=== PATIENT | male | born 1970 | race Caucasian/White ===

== ENCOUNTER 2017-05-01 12:20 | Emergency (ER) | payer BC ==
[2017-05-01 12:30] VITALS: BP 115/77
[2017-05-01] MEDS ORDERED: Albuterol/Ipratropium 3.0-0.5 MG/3 ML Neb Soln NEB ONE (13:12)
[2017-05-01] MEDS ORDERED: methylPREDNISolone Sodium Succinate 125 MG/2 ML SDV IM ONE (13:13)
--- NOTE | 2017-05-01 13:21 | EDM.PDOC ---
ED HPI GENERAL MEDICAL PROBLEM - General Chief Complaint: ENT Problem Stated Complaint: sore throat, cough Time Seen by Provider: 05/01/17 13:02 Source of Information: Reports: Patient History Limitations: Reports: No Limitations - History of Present Illness INITIAL COMMENTS - FREE TEXT/NARRATIVE: 3 day history upper airway congestion, sore throat, cough. 1 PPD smoker. Hx of COPD. Has Ventolin inhaler at home which has not been very helpful. More SOB than usual. No real fevers. Temp was in 99 degree range. No GI changes. Feels tired. Throat Pain Score (Numeric/FACES): 8 - Related Data Allergies Allergy/AdvReac Type Severity Reaction Status Date / Time No Known Allergies Allergy Verified 05/01/17 12:31 Home Meds: Home Meds Albuterol [Ventolin HFA] 1 puff INH BID 04/15/16 [History] predniSONE [Prednisone] 40 mg PO DAILY #8 tablet 05/01/17 [Rx] traMADol HCl [Tramadol HCl] 50 mg PO Q6H PRN #12 tablet 05/01/17 [Rx] Past Medical History HEENT History: Reports: Impaired Vision Cardiovascular History: Reports: Other (See Below) Other Cardiovascular History: cardiac arrest Respiratory History: Reports: Asthma, Other (See Below) Other Respiratory History: Legionnaires pneumonia with cardiac arrest Genitourinary History: Reports: None Musculoskeletal History: Reports: Other (See Below) Other Musculoskeletal History: skull fracture Neurological History: Reports: None Psychiatric History: Reports: ADD Other Psychiatric History: has been off adderal since Mar 2017 Endocrine/Metabolic History: Reports: Obesity/BMI 30+ Hematologic History: Reports: None Oncologic (Cancer) History: Reports: None - Past Surgical History GI Surgical History: Reports: Cholecystectomy Musculoskeletal Surgical History: Reports: Other (See Below) Other Musculoskeletal Surgeries/Procedures:: skull fracture Social & Family History - Family History Family Medical History: Noncontributory - Tobacco Use Smoking Status *Q: Current Every Day Smoker Years of Tobacco use: 20 Packs/Tins Daily: 1 - Caffeine Use Caffeine Use: Reports: Coffee - Alcohol Use Days Per Week of Alcohol Use: 0 Number of Drinks Per Day: 3 Total Drinks Per Week: 0 - Recreational Drug Use Recreational Drug Use: No ED ROS ENT - Review of Systems Review Of Systems: See Below Constitutional: Reports: Fatigue. Denies: Fever, Chills, Diaphoresis, Weight Loss, Weight Gain HEENT: Reports: Rhinitis, Throat Pain. Denies: Ear Pain, Eye Discharge, Eye Pain, Vertigo Respiratory: Reports: Shortness of Breath, Wheezing, Cough. Denies: Pleuritic Chest Pain, Hemoptysis Cardiovascular: Denies: Chest Pain, Edema, Lightheadedness, Palpitations, Syncope GI/Abdominal: Reports: No Symptoms : Reports: No Symptoms Musculoskeletal: Reports: No Symptoms Skin: Reports: No Symptoms Neurological: Reports: No Symptoms Psychiatric: Reports: No Symptoms Hematologic/Lymphatic: Reports: Swollen Glands (neck) ED EXAM, ENT - Physical Exam Exam: See Below Exam Limited By: No Limitations General Appearance: Alert, WD/WN, No Apparent Distress, Obese Eye Exam: Bilateral Eye: EOMI, PERRL Ears: Normal External Exam, Normal Canal, Hearing Grossly Normal, Normal TMs Nose: Normal Inspection Mouth/Throat: Normal Lips, Tonsillar Swelling. No: Drooling, Pharyngeal Erythema, Tongue Swelling, Tonsillar Erythema, Tonsillar Exudates, Uvular Deviation, Uvular Edema Head: Atraumatic, Normocephalic Neck: Supple, Full Range of Motion, Lymphadenopathy (L), Lymphadenopathy (R) Respiratory/Chest: No Respiratory Distress, Wheezing (throughout). No: Crackles , Rales, Rhonchi, Stridor, Pleural Rub, Accessory Muscle Use, Retractions Cardiovascular: Tachycardia GI/Abdominal: Soft, Non-Tender (Male) Exam: Deferred Rectal (Males) Exam: Deferred Back: No: CVA Tenderness (L), CVA Tenderness (R) Extremities: Normal Range of Motion, Non-Tender Neurological: Alert, Oriented, Normal Cognition, Normal Gait, No Motor/Sensory Deficits Psychiatric: Normal Affect, Normal Mood Skin: Warm, Dry, Intact, Normal Color Lymphatic: Other (mild neck adenopathy) Course - Vital Signs Last Recorded V/S: Last Vital Signs Temp 37.0 C 05/01/17 12:25 Pulse 116 H 05/01/17 12:25 Resp 19 05/01/17 12:25 BP 115/77 05/01/17 12:25 Pulse Ox 94 L 05/01/17 12:25 - Orders/Labs/Meds Orders: Active Orders 24 hr Category Date Time Status RT Aerosol Therapy [RC] ASDIRECTED Care 05/01/17 13:12 Active Chest 2V [CR] Stat Exams 05/01/17 13:11 Taken CULTURE STREP A CONFIRMATION [RM] Stat Lab 05/01/17 12:31 Results STREP SCRN A RAPID W CULT CONF [RM] Stat Lab 05/01/17 12:31 Results Meds: Medications Discontinued Medications Generic Name Dose Route Start Last Admin Trade Name Ronnieq PRN Reason Stop Dose Admin Albuterol/Ipratropium 3 ml 05/01/17 13:12 05/01/17 13:23 Duoneb 3.0-0.5 Mg/3 Ml NEB 05/01/17 13:13 3 ml ONETIME ONE Administration Methylprednisolone Sodium Succinate 125 mg 05/01/17 13:13 05/01/17 13:22 Solu-Medrol IM 05/01/17 13:14 125 mg ONETIME ONE Administration - Radiology Interpretation Free Text/Narrative:: Chest film showed changes consistent with COPD. Some scarring. No obvious focal infiltrated. Pending Radiology review. - Re-Assessments/Exams Free Text/Narrative Re-Assessment/Exam: 05/01/17 13:58 Patient declined IV fluids. Given Duo Neb to help with cough. O2 Sats 94% on room air prior to neb treatment. Suspect this is viral illness with COPD exacerbation given the prominence of the sore throat/nasal congestion complaints. No fevers. Will treat as COPD exacerbation at this time. If this does not follow a normal viral course, or if Radiology notes otherwise, will consider adding antibiotics as indicated. Smoking cessation stressed. Compliance with treatment of COPD emphasized. Follow up with a primary provider to establish local care also stressed, including consideration of starting additional COPD meds given his chronic smoking/lung changes. Precautions reviewed prior to discharge. Work slip given for today/tomorrow off. Departure - Departure Time of Disposition: 13:58 Disposition: Home, Self-Care 01 Condition: Good Clinical Impression: Viral respiratory illness, COPD exacerbation - Discharge Information Prescriptions: predniSONE [Prednisone] 40 mg PO DAILY #8 tablet traMADol HCl [Tramadol HCl] 50 mg PO Q6H PRN #12 tablet PRN Reason: Pain Instructions: Chronic Obstructive Pulmonary Disease, [id number] Referrals: PCP,Unknown [Ordering Only Provider] - Forms: ED Department Discharge Additional Instructions: Use your inhaler 1-2 puffs every 4-6 hours to help with cough. Start Prednisone tomorrow. You received the Solumedrol today. Follow up next week for recheck. Watch for fevers/generalized worsening as you have a higher risk of developing bacterial pneumonia. If that is suspected, then you will require antibiotics. Stopping smoking is HIGHLY encouraged given your history and lung disease. Discuss adding additional inhalers to your COPD treatment that help prevent flares (the one you have is to help AFTER symptoms have started) when you follow up at the clinic next week. Follow up otherwise as needed if you have problems. - My Orders Last 24 Hours: My Active Orders 05/01/17 12:31 CULTURE STREP A CONFIRMATION [RM] Stat STREP SCRN A RAPID W CULT CONF [RM] Stat 05/01/17 13:11 Chest 2V [CR] Stat 05/01/17 13:12 RT Aerosol Therapy [RC] ASDIRECTED - Assessment/Plan Last 24 Hours: My Active Orders 05/01/17 12:31 CULTURE STREP A CONFIRMATION [RM] Stat STREP SCRN A RAPID W CULT CONF [RM] Stat 05/01/17 13:11 Chest 2V [CR] Stat 05/01/17 13:12 RT Aerosol Therapy [RC] ASDIRECTED
== END 2017-05-01 14:15 | disposition home or self-care (01) ==
LOC: LL.ED 12:20
DX: J44.1 Chronic obstructive pulmonary disease with (acute) exacerbation (principal); J06.9 Acute upper respiratory infection, unspecified; J45.909 Unspecified asthma, uncomplicated; F17.210 Nicotine dependence, cigarettes, uncomplicated; Z79.52 Long term (current) use of systemic steroids
CPT/HCPCS: 71046; 87081; 87430; 96372; 99284; J2930

== ENCOUNTER 2017-06-07 02:23 | Emergency (ER) | payer BC, OTHER ==
[2017-06-07 02:37] VITALS: BP 126/81
--- NOTE | 2017-06-07 02:46 | EDM.PDOC ---
ED HPI GENERAL MEDICAL PROBLEM - General Chief Complaint: Upper Extremity Injury/Pain Stated Complaint: crush injury R) hand 2nd digit Time Seen by Provider: 06/07/17 02:40 Source of Information: Reports: Patient, Old Records ([facility] EMR. No paper hospital chart available.) History Limitations: Reports: No Limitations - History of Present Illness INITIAL COMMENTS - FREE TEXT/NARRATIVE: The patient drove himself to the emergency room via private automobile for evaluation of a Workmen's Compensation injury, which occurred at about 2 AM on . 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 He has had difficulty using his right hand today while performing his work duties at work. He complains of 8/10 mostly second finger pain at this time with decreased range of motion and no history of repeat injury or previous injury to his right hand in the past. He has not taken any medications for his discomfort to this point with an additional minor abrasion and redness noted on the same finger. No history of paresthesias, neurological deficits, or other complaints or injuries. The patient denies any chest pain/pressure, heart flutter, dizziness, orthostasis, orthopnea, diaphoresis, paresthesias, recent decreased exercise tolerance, or any other anginal-type symptoms. No recent history of abdominal pain, heartburn , nausea, diarrhea, melena, gross hematochezia, or any food intolerance, including fatty foods, etc.. The patient also denies any recent fever, cough, wheezing, dyspnea, etc.. Onset: Sudden Onset Date: 06/06/17 Onset Time: 02:00 Duration: Constant, Getting Worse Location: Reports: Upper Extremity, Right. 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 Denies: Cataract, Glaucoma, Hard of Hearing, Macular Degeneration, Retinal Detachment Other HEENT History: Glasses Cardiovascular History: Reports: Other (See Below). Denies: Afib, Aneurysm, Arrhythmia, Blood Clots/VTE/DVT, CAD, Heart Murmur, High Cholesterol, Hypertension, NC, Syncope Other Cardiovascular History: Intraoperative cardiac arrest recently during bronchoscopy in about 2007 with no additional procedures required Respiratory History: Reports: Asthma, Bronchitis, Recurrent, COPD, Intubation, Previous, Other (See Below). Denies: PE, Pneumothorax, Sleep Apnea, TB Other Respiratory History: Legionnaires pneumonia with cardiac arrest during bronchoscopy in 2007 as above Gastrointestinal History: Reports: Cholelithiasis. Denies: Celiac Disease, Chronic Constipation, Chronic Diarrhea, Fecal Incontinence, Gastritis, GERD, Hepatitis, Inflammatory Bowel Disease, Irritable Bowel Syndrome, Jaundice, Pancreatitis, PUD Genitourinary History: Reports: None. Denies: Acute Renal Failure, BPH, Chronic Renal Insuffiency, Renal Calculus, STD, Urinary Incontinence, UTI, Recurrent Musculoskeletal History: Reports: Arthritis, Fracture, Osteoarthritis, Other ( See Below). Denies: Amputation, Back Pain, Chronic, Gout, Neck Pain, Chronic, RA, SLE Other Musculoskeletal History: Right foot fracture at about age 14. Skull fracture at age 10 Neurological History: Reports: Concussion, Head Trauma, Other (See Below). Denies: Cerebral Aneurysms, CVA, Headaches, Chronic, Migraines, MS, Neuropathy, Peripheral, Parkinson's, Seizure, TIA Other Neuro History: Head concussion with skull fracture at age 10 Psychiatric History: Reports: ADD, ADHD, Addiction. Denies: Abuse, Victim of, Anxiety, Depression, Psych Hospitalization(s), PTSD, Suicide Attempt, Suicidal Ideation Other Psychiatric History: The patient has been off Adderal since Mar 2017. Previous history of illicit drug use as below. Endocrine/Metabolic History: Reports: Obesity/BMI 30+. Denies: Diabetes, Type I , Diabetes, Type II, Diabetes Mellitus, Type 3c, Hypothyroidism, IDDM Hematologic History: Reports: None. Denies: Anemia, Blood Transfusion(s), Iron Deficiency Immunologic History: Reports: None. Denies: AIDS, HIV, SLE Oncologic (Cancer) History: Reports: None. Denies: Basal Cell Carcinoma, Hodgkin's Lymphoma, Leukemia, Lymphoma, Malignant Melanoma, Non-Hodgkin's Lymphoma, Squamous Cell Carcinoma Dermatologic History: Reports: None. Denies: Eczema, Psoriasis - Infectious Disease History Infectious Disease History: Reports: Chicken Pox, Other (See Below). Denies: C- Difficile, Measles, Meningitis, Mononucleosis, MRSA, Mumps, Pertussis (Whooping Cough), Rheumatic Fever, Scarlet Fever, Shingles, VRE Other Infectious Disease History: Legionnaires disease in 2007 - Past Surgical History Head Surgeries/Procedures: Reports: Other (See Below) Other Head Surgeries/Procedures: Plastic surgery for skull fracture/injury at age 10 HEENT Surgical History: Reports: None. Denies: Adenoidectomy, Cataract Surgery , Eye Surgery, Laser Surgery, LASIK, Myringotomy w Tube(s), Naso-Sinus Surgery, Oral Surgery, Tonsillectomy Cardiovascular Surgical History: Denies: Varicose Respiratory Surgical History: Reports: Other (See Below). Denies: Thoracentesis Other Respiratory Surgeries/Procedures: Bronchoscopy in 2007 secondary to evaluation of hemoptysis from legionnaires disease with cardiac arrest as above GI Surgical History: Reports: Cholecystectomy, Other (See Below). Denies: Appendectomy, Colonoscopy, EGD, Hernia, Abdominal, Hernia, Inguinal, Hernia Repair/Other Other GI Surgeries/Procedures: Laparoscopic cholecystectomy in about 2012 Male Surgical History: Reports: Circumcision, Other (See Below). Denies: Vasectomy Other Male Surgeries/Procedures: Circumcision as an infant Endocrine Surgical History: Denies: Thyroid Biopsy Neurological Surgical History: Reports: None. Denies: C-Spine, Discectomy, Intracranial, Laminectomy, Lumbar Spine, Sacral Spine, Spinal Fusion, Vertebroplasty Musculoskeletal Surgical History: Reports: Other (See Below). Denies: Arthroscopic Procedure, Carpal Tunnel, Ganglion Cyst, Joint Replacement, ORIF, Shoulder Surgery Other Musculoskeletal Surgeries/Procedures:: skull fracture Oncologic Surgical History: Reports: None Dermatological Surgical History: Reports: Plastic Surgical Reconstruction/Repair , Other (See Below) Other Dermatological Surgeries/Procedures: Plastic surgery of skull injury at age 10 as above Social & Family History - Family History Family Medical History: Noncontributory - Tobacco Use Smoking Status *Q: Current Every Day Smoker Tobacco Use Within Last Twelve Months: Cigarettes Years of Tobacco use: 24 Packs/Tins Daily: 1 Packs/Tins Daily Comment: Start smoking at age 23 with maximum use of 3 packs per day Used Tobacco, but Quit: No Smoking Cessation Information Provided To Patient: Yes Second Hand Smoke Exposure: Yes Source of Second Hand Smoke Exposure: Roommate's father Second Hand Smoke Education Provided: Yes - Caffeine Use Caffeine Use: Reports: Coffee (3 cups per week), Soda (1 L per day). Denies: Energy Drinks, Tea - Alcohol Use Alcohol Use History: Yes Days Per Week of Alcohol Use: 0 (No previous DWIs, problems with alcohol abuse, etc.) Number of Drinks Per Day: 0 Total Drinks Per Week: 0 Alcohol Use Frequency: Rarely - Recreational Drug Use Recreational Drug Use: No Drug Use in Last 12 Months: No Recreational Drug Type: Reports: Cocaine (Between ages 20 and 24), Marijuana/ Hashish (Experimental in high school). Denies: Amphetamines (Speed), Heroin, Inhalants (Glues, Solvents, Aerosols), LSD (Acid), Methamphetamine, Morphine, Oxycodone - Living Situation & Occupation Living situation: Reports: Single (No children), Other (Roommate and roommate's father) Occupation: Employed ([email or web address]) Review of Systems - Review of Systems Review Of Systems: ROS reveals no pertinent complaints other than HPI. ED EXAM, GENERAL - Physical Exam Exam: See Below Exam Limited By: No Limitations General Appearance: Alert, WD/WN, No Apparent Distress Neck: Normal Inspection, Supple, Non-Tender, Full Range of Motion. No: Lymphadenopathy (L), Lymphadenopathy (R), Thyromegaly Respiratory/Chest: No Respiratory Distress, Normal Breath Sounds, No Accessory Muscle Use, Chest Non-Tender, Rhonchi (Mild bilateral diffuse), Wheezing ( Occasional bilateral diffuse). No: Rales, Pleural Rub, Retractions Cardiovascular: Normal Peripheral Pulses, Regular Rate, Rhythm, No Edema, No Gallop, No JVD, No Murmur, No Rub. No: Gallop/S3, Gallop/S4 Peripheral Pulses: 2+: Radial (L), Radial (R) GI/Abdominal: Normal Bowel Sounds, Soft, Non-Tender, No Organomegaly, No Distention, No Abnormal Bruit, No Mass, Pelvis Stable, Other (obese). No: Guarding (Male) Exam: Deferred Rectal (Males) Exam: Deferred Back Exam: Normal Inspection, Full Range of Motion, Other (Mild kyphosis). No: CVA Tenderness (L), CVA Tenderness (R), Muscle Spasm Extremities: No Pedal Edema, Normal Capillary Refill, Joint Swelling (Mostly at the MCP of digit #2 of the right hand), Arm Pain (Moderate pain by palpation and movement mostly at the MCP of digit #2 of the right hand), Limited Range of Motion (Digit #2 of the right hand), Redness (Mild +1 erythema of digit #2 of the right hand with small 1 cm superficial abrasion noted further dorsal surface of the distal phalanx). No: Increased Warmth Neurological: Alert, Oriented, CN II-XII Intact, Normal Cognition, Normal Gait, Normal Reflexes, No Motor/Sensory Deficits Psychiatric: Normal Affect, Normal Mood Skin Exam: No Rash, Erythema (As above), Wound/Incision (As above). No: Lymphangitis Lymphatic: No Adenopathy ED TRAUMA EXTREMITY PROCEDURES - Splinting Right Upper Extremity Splint Site: Digit number 2 of the right hand Pre-Procedure NV Status: Normal Post-Procedure NV Status: Normal Splint Material: Aluminum-Foam, Other (2 inch Paulo wrap) Splint Design: Other (1 inch in width flexor splint extending to the mid aspect of the palmar surface of the hand secured with a 2 inch Paulo wrap) Applied & Form Fitted By: Provider Provider Post-Splint Application NV Check: NV Status Normal, Good Position Complications: No Course - Vital Signs Last Recorded V/S: Last Vital Signs Temp 37.0 C 06/07/17 02:25 Pulse 98 06/07/17 02:25 Resp 20 06/07/17 02:25 BP 126/81 06/07/17 02:25 Pulse Ox 93 L 06/07/17 02:25 Vital Signs - 24 hr 06/07/17 02:25 Temperature [ 37.0 C Temporal] Pulse, 98 Peripheral [ Right Brachial] Respiratory 20 Rate Blood Pressure 126/81 [Right Upper Arm] O2 Sat by Pulse 93 L Oximetry - Orders/Labs/Meds Labs: Laboratory Tests 06/07/17 Range/Units 03:10 Urine Opiates Screen Negative (NEGATIVE) Ur Barbiturates Screen Negative (NEGATIVE) Ur Tricyclics Screen Negative (NEGATIVE) Ur Phencyclidine Scrn Negative (NEGATIVE) Ur Amphetamine Screen Negative (NEGATIVE) U Methamphetamines Scrn Negative (NEGATIVE) U Benzodiazepines Scrn Negative (NEGATIVE) U Cocaine Metab Screen Negative (NEGATIVE) U Marijuana (THC) Screen Negative (NEGATIVE) None Meds: Medications Discontinued Medications Generic Name Dose Route Start Last Admin Trade Name Freq PRN Reason Stop Dose Admin Amoxicillin/Clavulanate Potassium 1 tab 06/07/17 03:20 06/07/17 03:25 Augmentin 875 Mg/125 Mg PO 06/07/17 03:21 1 tab ONETIME ONE Administration - Radiology Interpretation Free Text/Narrative:: X-rays of the right hand, complete, shows evidence of a mildly displaced palmar moderate chip fracture of the proximal aspect of the proximal phalanx of digit # 2. No evidence of foreign body. Moderate diffuse osteoarthritic changes with probable artifact of the distal aspect of the middle phalanx of the same digit but no definite fracture in this area. Departure - Departure Time of Disposition: 03:50 Disposition: Home, Self-Care 01 Condition: Good Clinical Impression: Tobacco abuse counseling Finger fracture, right Qualifiers: Encounter type: initial encounter Finger: index finger Fracture type: closed Phalanx: proximal Fracture alignment: displaced Qualified Code(s): S62.610A - Displaced fracture of proximal phalanx of right index finger, initial encounter for closed fracture Cellulitis Qualifiers: Site of cellulitis: extremity Site of cellulitis of extremity: finger Laterality: right Qualified Code(s): L03.011 - Cellulitis of right finger Asthma Qualifiers: Asthma severity: moderate Asthma persistence: persistent Asthma complication type: uncomplicated Qualified Code(s): J45.40 - Moderate persistent asthma, uncomplicated Osteoarthritis Qualifiers: Osteoarthritis location: multiple joints Osteoarthritis type: primary Qualified Code(s): M15.0 - Primary generalized (osteo)arthritis ADHD Qualifiers: Attention deficit-hyperactivity disorder type: predominantly inattentive Qualified Code(s): F90.0 - Attention-deficit hyperactivity disorder, predominantly inattentive type - Discharge Information Prescriptions: Amoxicillin/Clavulanate K [Augmentin 875-125 MG] 1 tab PO BIDMEALS #20 tab Instructions: Finger Fracture, [id number], Cellulitis, Adult, [id number] Referrals: PCP,Unknown [Primary Care Provider] - Forms: ED Department Discharge Additional Instructions: 1. Follow-up with your regular provider in one week for reevaluation and repeat x-rays of your right hand. 2. Tylenol 650 mg by mouth every 4 hours and/or OTC ibuprofen 2-3 tabs by mouth every 6 hours with food as directed./needed. 3. Antibacterial soap wash/soak with subsequent antibacterial dressing such as Neosporin, etc. as directed 2 times per day until the wound or laceration site completely heals. Keep the area clean and dry with activity restrictions as discussed. 4. Wear finger splint at all times as directed with exception of bathing and wound care with limited use of your right hand as discussed 5. Work excuse- See Form 6. Ice packs and and elevation as discussed 7. Stop all tobacco use ZAHIDA as directed/per provided information and consider contacting Quit LIne, etc.. - Problem List & Annotations (1) Finger fracture, right SNOMED Code(s): 53430169 Code(s): S62.609A - FRACTURE OF UNSP PHALANX OF UNSP FINGER, INIT FOR CLOS FX Status: Acute Priority: High Onset Date: 06/07/17 Annotation/Comment: : Finger fracture as above. Splint applied as above. Workmen's Compensation and [employer] work excuse forms were completed. Close follow-up by his regular provider as per discharge instructions. Various therapeutic options were discussed with patient, including possible referral to hand surgeon, which he does not wish to have this time. Activity restrictions and wound care, etc. were discussed. He did not wish to have IM Toradol and was somewhat aggravated concerning ER policy of restricting narcotic prescriptions. Compliance with alternating Tylenol and ibuprofen therapy was encouraged. Note distant history of illicit drug use as above with urine specimen for drug screen collected with results completed later this morning after the patient left the emergency room. Qualifiers: Encounter type: initial encounter Finger: index finger Fracture type: closed Phalanx: proximal Fracture alignment: displaced Qualified Code(s): S62.610A - Displaced fracture of proximal phalanx of right index finger, initial encounter for closed fracture (2) Cellulitis SNOMED Code(s): 215256010 Code(s): L03.90 - CELLULITIS, UNSPECIFIED Status: Acute Priority: High Onset Date: 06/06/17 Annotation/Comment:: Mild abrasion of his second finger on his right hand as above with secondary beginning possible cellulitis. No acute drainage noted. His tetanus booster is up-to-date by his history. Augmentin therapy initiated in the emergency room. Qualifiers: Site of cellulitis: extremity Site of cellulitis of extremity: finger Laterality: right Qualified Code(s): L03.011 - Cellulitis of right finger (3) ADHD SNOMED Code(s): 000099375 Code(s): F90.9 - ATTENTION-DEFICIT HYPERACTIVITY DISORDER, UNSPECIFIED TYPE Status: Chronic Priority: Medium Annotation/Comment:: Stable by history with the patient noncompliant with his Adderall therapy as above stopping his medication on his own. Note history of illicit drug use in the past as above. Qualifiers: Attention deficit-hyperactivity disorder type: predominantly inattentive Qualified Code(s): F90.0 - Attention-deficit hyperactivity disorder, predominantly inattentive type (4) Asthma SNOMED Code(s): 864742761 Code(s): J45.909 - UNSPECIFIED ASTHMA, UNCOMPLICATED Status: Chronic Priority: Medium Annotation/Comment:: Additional probable COPD by clinical exam and secondary to his tobacco use, however otherwise stable by patient history Qualifiers: Asthma severity: moderate Asthma persistence: persistent Asthma complication type: uncomplicated Qualified Code(s): J45.40 - Moderate persistent asthma, uncomplicated (5) Osteoarthritis SNOMED Code(s): 367305591 Code(s): M19.90 - UNSPECIFIED OSTEOARTHRITIS, UNSPECIFIED SITE Status: Chronic Priority: Medium Annotation/Comment:: Otherwise stable by history Qualifiers: Osteoarthritis location: multiple joints Osteoarthritis type: primary Qualified Code(s): M15.0 - Primary generalized (osteo)arthritis (6) Tobacco abuse counseling SNOMED Code(s): 493183181, [id number], [id number] Code(s): Z71.6 - TOBACCO ABUSE COUNSELING Status: Chronic Priority: Medium Annotation/Comment:: Stop all tobacco use ZAHIDA as directed/per provided information and consider contacting Quit LIne, etc.. (7) Allergic rhinitis SNOMED Code(s): 68260080 Code(s): J30.9 - ALLERGIC RHINITIS, UNSPECIFIED Status: Chronic Priority : Medium Annotation/Comment:: Stable by history Qualifiers: Allergic rhinitis trigger: unspecified Allergic rhinitis seasonality: seasonal - Problem List Review Problem List Initiated/Reviewed/Updated: Yes - Assessment/Plan Assessment:: As above Plan: As above. Extensive precautions were given to the patient, who is in agreement with the treatment plan. See Patient Instructions for further treatment and plan.
[2017-06-07] MEDS ORDERED: Amoxicillin/Clavulanate K 875-125 MG Tab PO ONE (03:20)
== END 2017-06-07 03:50 | disposition home or self-care (01) ==
LOC: LL.ED 02:23
DX: S62.610A Displaced fracture of proximal phalanx of right index finger, initial encounter for closed fracture (principal); L03.011 Cellulitis of right finger; J45.40 Moderate persistent asthma, uncomplicated; M15.0 Primary generalized (osteo)arthritis; F90.0 Attention-deficit hyperactivity disorder, predominantly inattentive type; F17.210 Nicotine dependence, cigarettes, uncomplicated; Z71.6 Tobacco abuse counseling; W23.1XXA Caught, crushed, jammed, or pinched between stationary objects, initial encounter
CPT/HCPCS: 73130-RT; 80305; 99283; A9270-GY

== ENCOUNTER 2018-03-10 23:53 | Emergency (ER) | payer BC ==
--- NOTE | 2018-03-11 00:29 | EDM.PDOC ---
ED HPI GENERAL MEDICAL PROBLEM - General Chief Complaint: Respiratory Problem Stated Complaint: sinus and cough Time Seen by Provider: 03/11/18 00:25 Source of Information: Reports: Patient, Old Records ([facility] EMR. No paper hospital chart available.) History Limitations: Reports: No Limitations - History of Present Illness INITIAL COMMENTS - FREE TEXT/NARRATIVE: Patient drove himself to the emergency room via private automobile for evaluation of progressive yellowish productive cough and occasional wheezing with dyspnea earlier today. He has had some cold type symptoms including nasal drainage, etc. for the last 3 days. The patient was seen by his regular provider , ROBERT Cardoza at the [facility] on 03/10 with chest x-ray and blood work conducted. He apparently received an IM Depo-Medrol injection and was started on an unknown antibiotic and tapering prednisone regimen. His significant other is having similar type symptoms. No recent history of abdominal pain, heartburn, nausea, diarrhea, melena, gross hematochezia, or any food intolerance, including fatty foods, etc.. The patient denies any chest pain /pressure, heart flutter, dizziness, orthostasis, orthopnea, diaphoresis, paresthesias, recent decreased exercise tolerance, or any other anginal-type symptoms. He did not get an influenza booster this season. Patient did have a fever of 100.6 2 days ago with last dose of Tylenol sinus at about 22:00 hours. He denies any significant pain or discomfort. Onset: Gradual Onset Date: 03/08/18 Duration: Constant, Getting Worse Location: Reports: Generalized Quality: Reports: Same as Previous Episode Severity: Moderate Improves with: Reports: None Worsens with: Reports: None Context: Reports: Sick Contact (As above) Associated Symptoms: Reports: Cough, cough w sputum, Fever/Chills, Shortness of Breath. Denies: Confusion, Chest Pain, Diaphoresis, Headaches, Nausea/Vomiting , Seizure, Syncope, Weakness - Related Data Allergies Allergy/AdvReac Type Severity Reaction Status Date / Time No Known Allergies Allergy Verified 03/10/18 23:56 Home Meds: Home Meds Albuterol [Ventolin HFA] 1 puff INH BID PRN 04/15/16 [History] Guaifenesin/Pseudoephedrne HCl [Mucinex D ER 600-60 mg Tablet] 1 each PO BID # 20 tab.er.12h 03/11/18 [Rx] Ipratropium/Albuterol Sulfate [Iprat-Albut 0.5-3(2.5) mg/3 ml] 3 ml IH QID 03/11 [History] Varenicline Tartrate [Chantix] 1 cap PO BID 03/11/18 [History] Past Medical History HEENT History: Reports: Allergic Rhinitis, Impaired Vision, Other (See Below). Denies: Cataract, Glaucoma, Hard of Hearing, Macular Degeneration, Retinal Detachment Other HEENT History: Patient wears Glasses. 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 Left supraorbital fracture secondary to head injury at age 10. Cardiovascular History: Reports: Arrhythmia, Syncope, Other (See Below). Denies : Afib, Aneurysm, Blood Clots/VTE/DVT, CAD, Cardiomyopathy, Heart Failure, Heart Murmur, High Cholesterol, Hypertension, NM Other Cardiovascular History: Intraoperative cardiac arrest recently during bronchoscopy in about 2007 with no additional procedures required Respiratory History: Reports: Asthma, Bronchitis, Recurrent, COPD, Intubation, Previous, Pneumonia, Recurrent, Other (See Below). Denies: Intubation, Difficult, PE, Pneumothorax, Sleep Apnea, TB Other Respiratory History: Legionnaires pneumonia with cardiac arrest during bronchoscopy in 2007 as above Gastrointestinal History: Reports: Cholelithiasis, Other (See Below). Denies: Celiac Disease, Chronic Constipation, Chronic Diarrhea, Colon Polyp, Fecal Incontinence, Gastritis, GERD, GI Bleed, Hepatitis, Hiatal Hernia, Inflammatory Bowel Disease, Irritable Bowel Syndrome, Jaundice, Pancreatitis, PUD Other Gastrointestinal History: Umbilical hernia by CT scan in 2019 Genitourinary History: Reports: None. Denies: Acute Renal Failure, BPH, Chronic Renal Insuffiency, Renal Calculus, STD, Urinary Incontinence, UTI, Recurrent Musculoskeletal History: Reports: Arthritis, Fracture, Osteoarthritis, Other ( See Below) Other Musculoskeletal History: Right foot fracture at about age 14. Skull fracture as above. No phalangeal fracture of digit #2 of the right hand on . Neurological History: Reports: Concussion, Head Trauma, Other (See Below). Denies: Cerebral Aneurysms, MS, Neuropathy, Peripheral, Seizure, TIA, Vertigo Other Neuro History: Head concussion with skull fracture at age 10 Psychiatric History: Reports: ADD, ADHD, Addiction. Denies: Abuse, Victim of, Anxiety, Depression, Psych Hospitalization(s), Psychosis, PTSD, Suicide Attempt , Suicidal Ideation Other Psychiatric History: The patient has been off Adderal since Mar 2017. Previous history of illicit drug use as below. Endocrine/Metabolic History: Reports: Obesity/BMI 30+. Denies: Diabetes, Type I , Diabetes, Type II, Diabetes Mellitus, Type 3c, Hypothyroidism, IDDM Hematologic History: Reports: None. Denies: Anemia, Blood Transfusion(s), Iron Deficiency Immunologic History: Reports: None. Denies: AIDS, HIV, SLE Oncologic (Cancer) History: Reports: None. Denies: Basal Cell Carcinoma, Colon , Leukemia, Lymphoma, Malignant Melanoma, Non-Hodgkin's Lymphoma, Prostate, Squamous Cell Carcinoma Dermatologic History: Reports: None. Denies: Eczema, Psoriasis - Infectious Disease History Infectious Disease History: Reports: Chicken Pox, Other (See Below). Denies: C- Difficile, Measles, Meningitis, Mononucleosis, MRSA, Mumps, Pertussis (Whooping Cough), Rheumatic Fever, Scarlet Fever, Shingles, VRE Other Infectious Disease History: Legionnaires disease in 2007 - Past Surgical History Head Surgeries/Procedures: Reports: Other (See Below) Other Head Surgeries/Procedures: Plastic surgery for skull fracture/injury at age 10. HEENT Surgical History: Reports: None. Denies: Cataract Surgery, Eye Surgery, Laser Surgery, LASIK, Myringotomy w Tube(s), Naso-Sinus Surgery, Oral Surgery, Tonsillectomy Cardiovascular Surgical History: Reports: None. Denies: Varicose Respiratory Surgical History: Reports: Other (See Below). Denies: Thoracentesis Other Respiratory Surgeries/Procedures: Bronchoscopy in 2007 secondary to evaluation of hemoptysis from Legionnaires disease with cardiac arrest as above GI Surgical History: Reports: Cholecystectomy, Other (See Below). Denies: Appendectomy, Colonoscopy, EGD, Hernia, Abdominal, Hernia, Inguinal, Hernia Repair/Other Other GI Surgeries/Procedures: Laparoscopic cholecystectomy in about 2012 Male Surgical History: Reports: Circumcision, Other (See Below). Denies: Vasectomy Other Male Surgeries/Procedures: Circumcision as an infant Endocrine Surgical History: Reports: None Neurological Surgical History: Reports: None. Denies: C-Spine, Discectomy, Laminectomy, Lumbar Spine, Sacral Spine, Spinal Fusion, Thoracic Spine, Vertebroplasty Musculoskeletal Surgical History: Reports: Other (See Below). Denies: Arthroscopic Procedure, Carpal Tunnel, Ganglion Cyst, Joint Replacement, ORIF, Shoulder Surgery Other Musculoskeletal Surgeries/Procedures:: skull fracture surgery as above. Oncologic Surgical History: Reports: None Dermatological Surgical History: Reports: Plastic Surgical Reconstruction/Repair , Other (See Below) Other Dermatological Surgeries/Procedures: Skull surgery as above. - Past Imaging History Past Imaging History: Reports: CAT Scan (CT scan of the maxillofacial region on 10/21/17. CT of the abdomen and pelvis on 02/24/18.) Social & Family History - Family History Family Medical History: Noncontributory - Tobacco Use Smoking Status *Q: Current Every Day Smoker Tobacco Use Within Last Twelve Months: Cigarettes Years of Tobacco use: 25 Packs/Tins Daily: 0.5 Packs/Tins Daily Comment: Started smoking at age 23 with maximum use of 3 packs per day. Used Tobacco, but Quit: No Smoking Cessation Information Provided To Patient: Yes Second Hand Smoke Exposure: Yes Source of Second Hand Smoke Exposure: Significant other Second Hand Smoke Education Provided: Yes - Caffeine Use Caffeine Use: Reports: Coffee (3 cups per week), Soda (1 L per day). Denies: Energy Drinks, Tea - Alcohol Use Alcohol Use History: Yes Days Per Week of Alcohol Use: 0 Number of Drinks Per Day: 0 Number of Drinks Per Day Comment: No previous DWIs, problems with alcohol abuse , etc. Total Drinks Per Week: 0 Alcohol Use in Last Twelve Months: Yes Alcohol Use Frequency: Rarely - Recreational Drug Use Recreational Drug Use: Yes Drug Use in Last 12 Months: No Recreational Drug Type: Reports: Cocaine (Between ages 20 and 26.), Marijuana/ Hashish (Experimental in high school). Denies: Amphetamines (Speed), Heroin, Inhalants (Glues, Solvents, Aerosols), LSD (Acid), Methamphetamine, Morphine, Oxycodone - Living Situation & Occupation Living situation: Reports: Single (No children however currently living with his significant other and her child), Other (Roommate and roommate's father) Occupation: Employed ([employer]) ED ROS GENERAL - Review of Systems Review Of Systems: ROS reveals no pertinent complaints other than HPI. ED EXAM, GENERAL - Physical Exam Exam: See Below Exam Limited By: No Limitations General Appearance: Alert, WD/WN, No Apparent Distress, Anxious (Mild to moderate) Eye Exam: Bilateral Eye: EOMI, Normal Inspection (No nystagmus), PERRL Ears: Normal External Exam, Normal Canal, Hearing Grossly Normal, Normal TMs Nose: Nasal Deformity (Note nasal septum defect by history as above), Nasal Drainage (Moderate bilateral purulent) Throat/Mouth: Normal Lips, Normal Teeth, Normal Gums, Normal Voice, No Airway Compromise. No: Normal Oropharynx (Trace erythema in the posterior pharynx), Dysphagia, Inflammation, Perioral Cyanosis Head: Atraumatic, Normocephalic. No: Facial Swelling, Facial Tenderness, Sinus Tenderness Neck: Normal Inspection, Supple, Non-Tender, Full Range of Motion. No: Lymphadenopathy (L), Lymphadenopathy (R), Thyromegaly Respiratory/Chest: No Respiratory Distress, Lungs Clear, Normal Breath Sounds, No Accessory Muscle Use, Chest Non-Tender. No: Pleural Rub, Retractions Cardiovascular: Normal Peripheral Pulses, Regular Rate, Rhythm, No Edema, No Gallop, No JVD, No Murmur, No Rub. No: Gallop/S3, Gallop/S4, Friction Rub Peripheral Pulses: 2+: Radial (L), Radial (R) GI/Abdominal: Normal Bowel Sounds, Soft, Non-Tender, No Organomegaly, No Distention, No Abnormal Bruit, No Mass, Other (Obese). No: Guarding (Male) Exam: Deferred Rectal (Males) Exam: Deferred Back Exam: Normal Inspection, Full Range of Motion. No: CVA Tenderness (L), CVA Tenderness (R), Muscle Spasm Extremities: Normal Inspection, Normal Range of Motion, Non-Tender, No Pedal Edema, Normal Capillary Refill. No: Pam's Sign Neurological: Alert, Oriented, CN II-XII Intact, Normal Cognition, Normal Gait, No Motor/Sensory Deficits Psychiatric: Anxious (Mild to moderate). No: Depressed Mood Skin Exam: Warm, Dry, Intact, Normal Color, No Rash. No: Diaphoretic, Wound/ Incision Lymphatic: No Adenopathy Course - Vital Signs Last Recorded V/S: Last Vital Signs Temp 36.9 C 03/11/18 00:00 Pulse 107 H 01/22/19 01:26 Resp 14 03/11/18 01:09 BP 123/72 03/11/18 01:26 Pulse Ox 95 03/11/18 01:09 Vital Signs - 24 hr 03/11/18 03/11/18 03/11/18 00:00 00:15 00:30 Temperature [ 36.9 C Oral] Pulse, 110 H 107 H 105 H Peripheral [ Right Pulse Oximetry] Respiratory 14 16 18 Rate Blood Pressure 125/69 112/74 114/65 [Left Upper Arm ] O2 Sat by Pulse 94 L 94 L 92 L Oximetry 03/11/18 03/11/18 03/11/18 00:45 01:09 01:26 Temperature [ Oral] Pulse, 101 H 84 107 H Peripheral [ Right Pulse Oximetry] Respiratory 16 14 Rate Blood Pressure 104/76 105/53 L 123/72 [Left Upper Arm ] O2 Sat by Pulse 95 95 Oximetry - Orders/Labs/Meds Orders: Active Orders 24 hr Category Date Time Status CULTURE SPUTUM + SMEAR [] Routine Lab 03/11/18 01:21 Results CULTURE STREP A CONFIRMATION [] Stat Lab 03/11/18 00:57 Results STREP SCRN A RAPID W CULT CONF [] Stat Lab 03/11/18 00:57 Results Obtain Past Medical Record [OM.PC] Routine Oth 03/11/18 00:42 Active Labs: Microbiology 03/11/18 01:21 Gram Stain - Final Sputum - Expectorated 03/11/18 00:57 Group A Streptococcus Rapid Screen - Final Throat NEGATIVE STREP A SCREEN 03/11/18 00:57 Influenza Type A Antigen Screen - Final Nasal, Right NEGATIVE INFLUENZA A VIRUS AG Influenza Type B Antigen Screen - Final NEGATIVE INFLUENZA B VIRUS AG Meds: None - Radiology Interpretation Free Text/Narrative:: None Departure - Departure Time of Disposition: 02:10 Disposition: Home, Self-Care 01 Condition: Good Clinical Impression: Bronchitis, Tobacco abuse counseling, Acquired nasal septal defect Osteoarthritis Qualifiers: Osteoarthritis location: multiple joints Osteoarthritis type: primary Qualified Code(s): M15.0 - Primary generalized (osteo)arthritis ADHD Qualifiers: Attention deficit-hyperactivity disorder type: predominantly inattentive Qualified Code(s): F90.0 - Attention-deficit hyperactivity disorder, predominantly inattentive type COPD (chronic obstructive pulmonary disease) Qualifiers: COPD type: COPD with acute lower respiratory infection Qualified Code(s): J44.0 - Chronic obstructive pulmonary disease with acute lower respiratory infection - Discharge Information *PRESCRIPTION DRUG MONITORING PROGRAM REVIEWED*: Not Applicable *COPY OF PRESCRIPTION DRUG MONITORING REPORT IN PATIENT TYLER: Not Applicable Prescriptions: Guaifenesin/Pseudoephedrne HCl [Mucinex D ER 600-60 mg Tablet] 1 each PO BID # 20 tab.er.12h Instructions: Acute Bronchitis, Adult, [id number] Referrals: PCP,Unknown [Primary Care Provider] - Forms: ED Department Discharge Additional Instructions: 1. Followup with your regular provider in 10-14 days as directed. Bring these discharge instructions with you to that visit. 2. Tylenol 650 mg by mouth every 4 hours and/or OTC ibuprofen 2-3 tabs by mouth every 6 hours with food as directed./needed. You may stagger these medications for 48-72 hours only, which essentially means that you are receiving a pain medication about every 2 hours. 3. Hygiene precautions as discussed 4. Complete prednisone and new antibiotic as prescribed yesterday by your regular provider 5. Congratulations about trying to quit smoking 6. Stop all previous OTC cold and cough preparations secondary to newly prescribed Mucinex D 7. Immediately after this visit verify that your cellular telephone's voicemail has been activated and is empty. Also verify that your home telephone 's answering machine is operating properly and has space to receive messages. Note that it is sometimes necessary for us to be able to contact you at a later date to discuss your medical care. 8. Please remember that we are ALWAYS here for you and want to answer any questions you may have. Feel free to call the hospital any time and we call you back ZAHIDA. 9. Listerine gargles four times per day, after meals and at bedtime, with additional Chloroseptic lozenges or spray as needed for 10 days and/or until symptoms resolve. 10. Obtain influenza booster ZAHIDA as discussed. - Problem List & Annotations (1) Bronchitis SNOMED Code(s): 00502201 Code(s): J40 - BRONCHITIS, NOT SPECIFIED ACUTE OR CHRONIC Status: Acute Priority: High Current Visit: Yes Onset Date: ~03/08/18 Annotation/ Comment:: Continue prescribed antibiotics and prednisone therapy as above. Hygiene issues discussed. Patient does not wish to have a work excuse. CBC, comprehensive metabolic panel, and chest x-ray results from 03/10 clinic visit were reviewed by me today with mild WBC elevation f 12.4 and chest x-ray showing COPD, atelectasis, and probable bronchitis. (2) COPD (chronic obstructive pulmonary disease) SNOMED Code(s): 29508156 Code(s): J44.9 - CHRONIC OBSTRUCTIVE PULMONARY DISEASE, UNSPECIFIED Status : Chronic Priority: Medium Current Visit: Yes Annotation/Comment:: Continue current medical therapy with compliance strongly encouraged. Qualifiers: COPD type: COPD with acute lower respiratory infection Qualified Code(s): J44.0 - Chronic obstructive pulmonary disease with acute lower respiratory infection (3) Osteoarthritis SNOMED Code(s): 257769521 Code(s): M19.90 - UNSPECIFIED OSTEOARTHRITIS, UNSPECIFIED SITE Status: Chronic Priority: Medium Current Visit: Yes Annotation/Comment:: Stable by history Qualifiers: Osteoarthritis location: multiple joints Osteoarthritis type: primary Qualified Code(s): M15.0 - Primary generalized (osteo)arthritis (4) Tobacco abuse counseling SNOMED Code(s): 327257300, 466216886, 434986805 Code(s): Z71.6 - TOBACCO ABUSE COUNSELING Status: Chronic Priority: Medium Current Visit: Yes Annotation/Comment:: The patient is trying to quit smoking and is on Chantix. Continued smoking cessation strongly encouraged with the patient already having information concerning tobacco cessation, although this was provided to his significant other for her tobacco use. (5) ADHD SNOMED Code(s): 405035225 Code(s): F90.9 - ATTENTION-DEFICIT HYPERACTIVITY DISORDER, UNSPECIFIED TYPE Status: Chronic Priority: Medium Current Visit: Yes Annotation/Comment: : Stable by history with the patient previously noncompliant with his Adderall therapy as above and stopping his medication on his own. Note history of illicit drug use in the past as above. Probable anxiety depression disorder based on today's exam. Continue to observe closely by his regular providers. Qualifiers: Attention deficit-hyperactivity disorder type: predominantly inattentive Qualified Code(s): F90.0 - Attention-deficit hyperactivity disorder, predominantly inattentive type (6) Acquired nasal septal defect SNOMED Code(s): 701133391 Code(s): J34.89 - OTHER SPECIFIED DISORDERS OF NOSE AND NASAL SINUSES Status: Chronic Priority: Medium Current Visit: Yes Annotation/Comment:: Nasal septum defect secondary to previous cocaine use as above. His ENT apparently has planned surgery for him in the near future. - Problem List Review Problem List Initiated/Reviewed/Updated: Yes - My Orders Last 24 Hours: My Active Orders 03/11/18 00:42 Obtain Past Medical Record [OM.PC] Routine 03/11/18 00:57 CULTURE STREP A CONFIRMATION [RM] Stat STREP SCRN A RAPID W CULT CONF [RM] Stat 03/11/18 01:21 CULTURE SPUTUM + SMEAR [RM] Routine - Assessment/Plan Last 24 Hours: My Active Orders 03/11/18 00:42 Obtain Past Medical Record [OM.PC] Routine 03/11/18 00:57 CULTURE STREP A CONFIRMATION [RM] Stat STREP SCRN A RAPID W CULT CONF [RM] Stat 03/11/18 01:21 CULTURE SPUTUM + SMEAR [RM] Routine Assessment:: As above Plan: As above. Extensive precautions were given to the patient and his significant other, who are in agreement with the treatment plan. See Patient Instructions for further treatment and plan.
[2018-03-11 01:26] VITALS: BP 123/72
== END 2018-03-11 02:10 | disposition home or self-care (01) ==
LOC: LL.ED 23:53
DX: J40 Bronchitis, not specified as acute or chronic (principal); J44.0 Chronic obstructive pulmonary disease with (acute) lower respiratory infection; J34.2 Deviated nasal septum; M15.0 Primary generalized (osteo)arthritis; F90.0 Attention-deficit hyperactivity disorder, predominantly inattentive type; Z79.899 Other long term (current) drug therapy; Z71.6 Tobacco abuse counseling
CPT/HCPCS: 36415; 71046; 80053; 85025; 87070; 87081; 87205; 87430; 87804; 99284

== ENCOUNTER 2018-04-01 20:00 | Emergency (ER) | payer BC ==
[2018-04-01] MEDS ORDERED: Sodium Chloride 0.9% 10 ML Syringe FLUSH PRN (20:17)
[2018-04-01] MEDS ORDERED: Sodium Chloride 0.9% 1,000 ML IV ONE ×2 (20:18→21:37)
--- NOTE | 2018-04-01 20:29 | EDM.PDOC ---
ED HPI GENERAL MEDICAL PROBLEM - General Chief Complaint: Respiratory Problem Stated Complaint: Cough, sorethroat, MELENDEZ, fever Time Seen by Provider: 04/01/18 20:15 Source of Information: Reports: Patient History Limitations: Reports: No Limitations - History of Present Illness INITIAL COMMENTS - FREE TEXT/NARRATIVE: Patient comes to ER complaining of one day history headache, congestion, bad sore throat, cough, increased SOB. Fever 102. Has not taken any medications for the above. Smoker, but has cut down significantly on daily cigarette use as he is trying to quit. Denies body aches. No GI changes such as nausea/emesis/bowel change. No UTI complaints. Denies rash, neuro changes (other than headache) No ear pain/vision change/hearing change. Congested cough. No other acute pain complaints. No other changes reported. Generalized Pain Score (Numeric/FACES): 9 - Related Data Allergies Allergy/AdvReac Type Severity Reaction Status Date / Time No Known Allergies Allergy Verified 04/01/18 20:02 Home Meds: Home Meds Albuterol [Ventolin HFA] 1 puff INH BID PRN 04/15/16 [History] Ipratropium/Albuterol Sulfate [Iprat-Albut 0.5-3(2.5) mg/3 ml] 3 ml IH QID 03/11 [History] Varenicline Tartrate [Chantix] 1 cap PO BID 03/11/18 [History] Oseltamivir [Tamiflu] 75 mg PO BID #10 cap 04/01/18 [Rx] predniSONE 40 mg PO WITHBREAKFAST #4 tab 04/01/18 [Rx] Past Medical History HEENT History: Reports: Allergic Rhinitis, Impaired Vision, Other (See Below). Denies: Cataract, Glaucoma, Hard of Hearing, Macular Degeneration, Retinal Detachment Other HEENT History: Patient wears Glasses. 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 Left supraorbital fracture secondary to head injury at age 10. Cardiovascular History: Reports: Arrhythmia, Syncope, Other (See Below). Denies : Afib, Aneurysm, Blood Clots/VTE/DVT, CAD, Cardiomyopathy, Heart Failure, Heart Murmur, High Cholesterol, Hypertension, SC Other Cardiovascular History: Intraoperative cardiac arrest recently during bronchoscopy in about 2007 with no additional procedures required Respiratory History: Reports: Asthma, Bronchitis, Recurrent, COPD, Intubation, Previous, Pneumonia, Recurrent, Other (See Below). Denies: Intubation, Difficult, PE, Pneumothorax, Sleep Apnea, TB Other Respiratory History: Legionnaires pneumonia with cardiac arrest during bronchoscopy in 2007 as above Gastrointestinal History: Reports: Cholelithiasis, Other (See Below). Denies: Celiac Disease, Chronic Constipation, Chronic Diarrhea, Colon Polyp, Fecal Incontinence, Gastritis, GERD, GI Bleed, Hepatitis, Hiatal Hernia, Inflammatory Bowel Disease, Irritable Bowel Syndrome, Jaundice, Pancreatitis, PUD Other Gastrointestinal History: Umbilical hernia by CT scan in 2019 Genitourinary History: Reports: None. Denies: Acute Renal Failure, BPH, Chronic Renal Insuffiency, Renal Calculus, STD, Urinary Incontinence, UTI, Recurrent Musculoskeletal History: Reports: Arthritis, Fracture, Osteoarthritis, Other ( See Below) Other Musculoskeletal History: Right foot fracture at about age 14. Skull fracture as above. No phalangeal fracture of digit #2 of the right hand on . Neurological History: Reports: Concussion, Head Trauma, Other (See Below). Denies: Cerebral Aneurysms, MS, Neuropathy, Peripheral, Seizure, TIA, Vertigo Other Neuro History: Head concussion with skull fracture at age 10 Psychiatric History: Reports: ADD, ADHD, Addiction. Denies: Abuse, Victim of, Anxiety, Depression, Psych Hospitalization(s), Psychosis, PTSD, Suicide Attempt , Suicidal Ideation Other Psychiatric History: The patient has been off Adderal since Mar 2017. Previous history of illicit drug use as below. Endocrine/Metabolic History: Reports: Obesity/BMI 30+. Denies: Diabetes, Type I , Diabetes, Type II, Diabetes Mellitus, Type 3c, Hypothyroidism, IDDM Hematologic History: Reports: None. Denies: Anemia, Blood Transfusion(s), Iron Deficiency Immunologic History: Reports: None. Denies: AIDS, HIV, SLE Oncologic (Cancer) History: Reports: None. Denies: Basal Cell Carcinoma, Colon , Leukemia, Lymphoma, Malignant Melanoma, Non-Hodgkin's Lymphoma, Prostate, Squamous Cell Carcinoma Dermatologic History: Reports: None. Denies: Eczema, Psoriasis - Infectious Disease History Infectious Disease History: Reports: Chicken Pox, Other (See Below). Denies: C- Difficile, Measles, Meningitis, Mononucleosis, MRSA, Mumps, Pertussis (Whooping Cough), Rheumatic Fever, Scarlet Fever, Shingles, VRE Other Infectious Disease History: Legionnaires disease in 2008 - Past Surgical History Head Surgeries/Procedures: Reports: Other (See Below) HEENT Surgical History: Reports: None. Denies: Cataract Surgery, Eye Surgery, Laser Surgery, LASIK, Myringotomy w Tube(s), Naso-Sinus Surgery, Oral Surgery, Tonsillectomy Cardiovascular Surgical History: Reports: None. Denies: Varicose Respiratory Surgical History: Reports: Other (See Below). Denies: Thoracentesis Other Respiratory Surgeries/Procedures: Bronchoscopy in 2007 secondary to evaluation of hemoptysis from Legionnaires disease with cardiac arrest as above GI Surgical History: Reports: Cholecystectomy, Other (See Below). Denies: Appendectomy, Colonoscopy, EGD, Hernia, Abdominal, Hernia, Inguinal, Hernia Repair/Other Other GI Surgeries/Procedures: Laparoscopic cholecystectomy in about 2012 Male Surgical History: Reports: Circumcision, Other (See Below). Denies: Vasectomy Other Male Surgeries/Procedures: Circumcision as an infant Endocrine Surgical History: Reports: None Neurological Surgical History: Reports: None. Denies: C-Spine, Discectomy, Laminectomy, Lumbar Spine, Sacral Spine, Spinal Fusion, Thoracic Spine, Vertebroplasty Musculoskeletal Surgical History: Reports: Other (See Below). Denies: Arthroscopic Procedure, Carpal Tunnel, Ganglion Cyst, Joint Replacement, ORIF, Shoulder Surgery Other Musculoskeletal Surgeries/Procedures:: skull fracture surgery as above. Oncologic Surgical History: Reports: None Dermatological Surgical History: Reports: Plastic Surgical Reconstruction/Repair , Other (See Below) Other Dermatological Surgeries/Procedures: Skull surgery as above. - Past Imaging History Past Imaging History: Reports: CAT Scan (CT scan of the maxillofacial region on 10/21/17. CT of the abdomen and pelvis on 02/24/18.) Social & Family History - Family History Family Medical History: Noncontributory - Tobacco Use Smoking Status *Q: Current Some Day Smoker - Caffeine Use Caffeine Use: Reports: Coffee (3 cups per week), Soda (1 L per day). Denies: Energy Drinks, Tea - Living Situation & Occupation Living situation: Reports: Single (No children however currently living with his significant other and her child), Other (Roommate and roommate's father) Occupation: Employed ([employer]) ED ROS GENERAL - Review of Systems Review Of Systems: ROS reveals no pertinent complaints other than HPI. ED EXAM, GENERAL - Physical Exam Exam: See Below Exam Limited By: No Limitations General Appearance: Alert, WD/WN, No Apparent Distress, Other (Some rhinorrhea, intermittent congested cough) Eye Exam: Bilateral Eye: EOMI, PERRL Ears: Normal External Exam, Normal Canal, Hearing Grossly Normal, Normal TMs Nose: Normal Inspection Throat/Mouth: Normal Lips, Normal Voice, No Airway Compromise, Other (Throat red ) Head: Atraumatic, Normocephalic Neck: Normal Inspection, Supple, Non-Tender, Full Range of Motion. No: Lymphadenopathy (L), Lymphadenopathy (R) Respiratory/Chest: No Respiratory Distress, No Accessory Muscle Use. No: Crackles, Rales, Rhonchi, Wheezing, Stridor Cardiovascular: No Murmur, Tachycardia Peripheral Pulses: 2+: Radial (L), Radial (R) GI/Abdominal: Normal Bowel Sounds, Soft, No Distention, Other (tender periumbilically due to umbilical hernia) (Male) Exam: Deferred Rectal (Males) Exam: Deferred Back Exam: Normal Inspection Extremities: Normal Inspection, Normal Range of Motion, Non-Tender, No Pedal Edema, Normal Capillary Refill Neurological: Alert, Oriented, CN II-XII Intact, Normal Cognition, Normal Gait, No Motor/Sensory Deficits Psychiatric: Normal Affect, Normal Mood Skin Exam: Warm, Dry, Intact, Normal Color Course - Vital Signs Last Recorded V/S: Last Vital Signs Temp 38.3 C H 04/01/18 21:45 Pulse 111 H 04/01/18 22:20 Resp 15 04/01/18 22:00 BP 105/66 04/01/18 22:00 Pulse Ox 96 04/01/18 22:20 - Orders/Labs/Meds Orders: Active Orders 24 hr Category Date Time Status RT Aerosol Therapy [RC] ASDIRECTED Care 04/01/18 20:44 Active RT Aerosol Therapy [RC] ASDIRECTED Care 04/01/18 20:45 Active CULTURE STREP A CONFIRMATION [RM] Stat Lab 04/01/18 20:06 Results STREP SCRN A RAPID W CULT CONF [RM] Stat Lab 04/01/18 20:06 Results Saline Lock Insert [OM.PC] Routine Oth 04/01/18 20:17 Ordered Labs: Laboratory Tests 04/01/18 04/01/18 04/01/18 Range/Units 20:30 20:30 20:30 WBC 8.5 (4.0-10.2) K/uL RBC 4.16 L (4.33-5.41) M/uL Hgb 13.7 (13.1-16.8) g/dL Hct 42.0 (39.0-49.0) % MCV 101.0 H (84.0-98.0) fL MCH 32.9 (28.2-33.3) pg MCHC 32.6 (31.7-36.0) g/dL RDW 13.6 (11.2-14.1) % Plt Count 190 (150-350) K/uL Neut % (Auto) 79.4 (45.0-80.0) % Lymph % (Auto) 8.0 L (10.0-50.0) % Glascock % (Auto) 11.9 (2.0-14.0) % Eos % (Auto) 0.5 (0.0-5.0) % Baso % (Auto) 0.2 (0.0-2.0) % Neut # (Auto) 6.75 (1.40-7.00) K/uL Lymph # (Auto) 0.68 (0.50-3.50) K/uL Glascock # (Auto) 1.01 H (0.00-1.00) K/uL Eos # (Auto) 0.04 (0.00-0.50) K/uL Baso # (Auto) 0.02 (0.00-0.20) K/uL Sodium 138 (136-145) mmol/L Potassium 4.1 (3.5-5.1) mmol/L Chloride 99 (98-107) mmol/L Carbon Dioxide 30.2 (21.0-32.0) mmol/L BUN 12 (7-18) mg/dL Creatinine 0.89 (0.51-1.17) mg/dL Est Cr Clr Drug Dosing 93.59 mL/min Estimated GFR (MDRD) > 60 mL/min Glucose 156 H (74-106) mg/dL Lactic Acid 3.0 H (0.4-2.0) mmol/L Calcium 8.5 (8.5-10.1) mg/dL Total Bilirubin 0.2 (0.2-1.0) mg/dL AST 13 L (15-37) U/L ALT 23 (12-78) U/L Alkaline Phosphatase 65 (46-116) IU/L Total Protein 6.8 (6.4-8.2) g/dL Albumin 3.5 (3.4-5.0) g/dL Meds: Medications Discontinued Medications Generic Name Dose Route Start Last Admin Trade Name Ronnieq PRN Reason Stop Dose Admin Acetaminophen 650 mg 04/01/18 20:31 04/01/18 21:11 Tylenol PO 04/01/18 20:32 650 mg NOW ONE Administration Albuterol/Ipratropium 3 ml 04/01/18 20:44 04/01/18 21:12 Duoneb 3.0-0.5 Mg/3 Ml NEB 04/01/18 20:45 3 ml ONETIME ONE Administration Albuterol/Ipratropium 3 ml 04/01/18 21:30 04/01/18 22:10 Duoneb 3.0-0.5 Mg/3 Ml NEB 04/01/18 21:31 3 ml ONETIME ONE Administration Sodium Chloride 1,000 mls @ 999 mls/hr 04/01/18 20:18 04/01/18 21:26 Normal Saline IV 04/01/18 21:18 Infused .BOLUS ONE Infusion Sodium Chloride 1,000 mls @ 999 mls/hr 04/01/18 21:37 04/01/18 21:26 Normal Saline IV 04/01/18 22:37 999 mls/hr .BOLUS ONE Administration Methylprednisolone Sodium Succinate 40 mg 04/01/18 20:46 04/01/18 21:12 Solu-Medrol IVPUSH 04/01/18 20:47 40 mg ONETIME ONE Administration Oseltamivir Phosphate 75 mg 04/01/18 20:39 04/01/18 21:11 Tamiflu PO 04/01/18 20:40 75 mg ONETIME ONE Administration Sodium Chloride 10 ml 04/01/18 20:17 04/01/18 21:13 Saline Flush FLUSH 10 ml ASDIRECTED PRN Administration Keep Vein Open - Re-Assessments/Exams Free Text/Narrative Re-Assessment/Exam: 04/01/18 20:42 + for Influenza A Received Tylenol and Tamiflu in addition to IV NS bolus. Normal WBC. Has had issues with shortness of breath with previous episodes bronchitis. Will give patient Prednisone but he was made aware that Prednisone will decrease his immune response to the influenza infection. Neb ordered. He does have an inhaler as well as nebulizer at home. He uses these PRN. Tamiflu given in ER. Prescription for Tamiflu also dispensed. Patient stated that he felt well enough to go home tonight. Departure - Departure Time of Disposition: 22:40 Disposition: Home, Self-Care 01 Condition: Good Clinical Impression: Influenza A - Discharge Information *PRESCRIPTION DRUG MONITORING PROGRAM REVIEWED*: Not Applicable *COPY OF PRESCRIPTION DRUG MONITORING REPORT IN PATIENT TYLER: Not Applicable Prescriptions: Oseltamivir [Tamiflu] 75 mg PO BID #10 cap predniSONE 40 mg PO WITHBREAKFAST #4 tab Instructions: Influenza, Adult, [id number] Referrals: Inez Peacock SCIENCE TECHNICIAN [Primary Care Provider] - Forms: ED Department Discharge Additional Instructions: Use your nebulizer every 4-6 hours during this illness to help with your sensation of shortness of breath! Take Tylenol every 4-6 hours to help with headache and fever. Watch for changes, and follow up for recheck if you note worsening symptoms. Stay hydrated! Drink plenty of water. - My Orders Last 24 Hours: My Active Orders 04/01/18 20:06 CULTURE STREP A CONFIRMATION [RM] Stat STREP SCRN A RAPID W CULT CONF [RM] Stat 04/01/18 20:17 Saline Lock Insert [OM.PC] Routine 04/01/18 20:44 RT Aerosol Therapy [RC] ASDIRECTED 04/01/18 20:45 RT Aerosol Therapy [RC] ASDIRECTED - Assessment/Plan Last 24 Hours: My Active Orders 04/01/18 20:06 CULTURE STREP A CONFIRMATION [RM] Stat STREP SCRN A RAPID W CULT CONF [RM] Stat 04/01/18 20:17 Saline Lock Insert [OM.PC] Routine 04/01/18 20:44 RT Aerosol Therapy [RC] ASDIRECTED 04/01/18 20:45 RT Aerosol Therapy [RC] ASDIRECTED
[2018-04-01] MEDS ORDERED: Acetaminophen 325 MG Tab PO ONE (20:31)
[2018-04-01] MEDS ORDERED: Oseltamivir 75 MG Cap PO ONE (20:39)
[2018-04-01] MEDS ORDERED: Albuterol/Ipratropium 3.0-0.5 MG/3 ML Neb Soln NEB ONE ×2 (20:44→21:30)
[2018-04-01] MEDS ORDERED: methylPREDNISolone Sodium Succinate 40 MG/1 ML SDV IVPUSH ONE (20:46)
[2018-04-01 20:48] LABS: CHLORIDE,CL 99 mmol/L (98-107); SODIUM,NA 138 mmol/L (136-145)
[2018-04-01 23:28] VITALS: BP 105/66
== END 2018-04-01 22:40 | disposition home or self-care (01) ==
LOC: LL.ED 20:00
DX: J10.1 Influenza due to other identified influenza virus with other respiratory manifestations (principal); Z79.899 Other long term (current) drug therapy
CPT/HCPCS: 36415; 80053; 83605; 85025; 87081; 87430; 87804; 94640; 96361; 96374; 99283; A9270; J2920; J7030; J7620-GY

== ENCOUNTER 2020-06-14 09:31 | Emergency (ER) | payer BC ==
[2020-06-14 09:45] VITALS: BP 112/73; PULSE 81
[2020-06-14] MEDS ORDERED: Bacitracin/Neomycin/Polymyxin B Oint 0.9 GM U/D Packet TOP ONE (10:12)
--- NOTE | 2020-06-14 10:16 | EDM.PDOC ---
ED HPI GENERAL MEDICAL PROBLEM - General Chief Complaint: Laceration Stated Complaint: LACERATION Time Seen by Provider: 06/14/20 10:03 Source of Information: Reports: Patient History Limitations: Reports: No Limitations - History of Present Illness INITIAL COMMENTS - FREE TEXT/NARRATIVE: Patient comes in with complaint of laceration involving left index finger. Was trying to cut fat off of raw chicken when he managed to cut himself. Wanted it evaluated so that the wound could be cleaned out and was concerned that initially the bleeding did not subside quickly. Immunizations up to date per patient. Treatments SORTER PRICER: Reports: Dressing(s) - Related Data Allergies Allergy/AdvReac Type Severity Reaction Status Date / Time No Known Allergies Allergy Verified 06/14/20 09:32 Home Meds: Home Meds Albuterol [Ventolin HFA] 1 puff INH BID PRN 04/15/16 [History] Ipratropium/Albuterol Sulfate [Iprat-Albut 0.5-3(2.5) mg/3 ml] 3 ml IH QID PRN 03/11/18 [History] Varenicline Tartrate [Chantix] 1 cap PO BID 03/11/18 [History] Amoxicillin 500 mg PO TID #21 tab 06/14/20 [Rx] Past Medical History HEENT History: Reports: Allergic Rhinitis, Impaired Vision, Other (See Below). Denies: Cataract, Glaucoma, Hard of Hearing, Macular Degeneration, Retinal Detachment Other HEENT History: Patient wears Glasses. 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 Left supraorbital fracture secondary to head injury at age 10. Cardiovascular History: Reports: Arrhythmia, Syncope, Other (See Below). Denies: Afib, Aneurysm, Blood Clots/VTE/DVT, CAD, Cardiomyopathy, Heart Failure, Heart Murmur, High Cholesterol, Hypertension, [place] Other Cardiovascular History: Intraoperative cardiac arrest recently during bronchoscopy in about 2007 with no additional procedures required Respiratory History: Reports: Asthma, Bronchitis, Recurrent, COPD, Intubation, Previous, Pneumonia, Recurrent, Other (See Below). Denies: Intubation, Difficult, PE, Pneumothorax, Sleep Apnea, TB Other Respiratory History: Legionnaires pneumonia with cardiac arrest during bronchoscopy in 2007 as above Gastrointestinal History: Reports: Cholelithiasis, Other (See Below). Denies: Celiac Disease, Chronic Constipation, Chronic Diarrhea, Colon Polyp, Fecal Incontinence, Gastritis, GERD, GI Bleed, Hepatitis, Hiatal Hernia, Inflammatory Bowel Disease, Irritable Bowel Syndrome, Jaundice, Pancreatitis, PUD Other Gastrointestinal History: Umbilical hernia by CT scan in 2019 Genitourinary History: Reports: None. Denies: Acute Renal Failure, BPH, Chronic Renal Insuffiency, Renal Calculus, STD, Urinary Incontinence, UTI, Recurrent Musculoskeletal History: Reports: Arthritis, Fracture, Osteoarthritis, Other (See Below) Other Musculoskeletal History: Right foot fracture at about age 14. Skull fracture as above. No phalangeal fracture of digit #2 of the right hand on 06/07/17. Neurological History: Reports: Concussion, Head Trauma, Other (See Below). Denies: Cerebral Aneurysms, MS, Neuropathy, Peripheral, Seizure, TIA, Vertigo Other Neuro History: Head concussion with skull fracture at age 10 Psychiatric History: Reports: ADD, ADHD, Addiction. Denies: Abuse, Victim of, Anxiety, Depression, Psych Hospitalization(s), Psychosis, PTSD, Suicide Attempt, Suicidal Ideation Other Psychiatric History: The patient has been off Adderal since Mar 2017. Previous history of illicit drug use as below. Endocrine/Metabolic History: Reports: Obesity/BMI 30+. Denies: Diabetes, Type I, Diabetes, Type II, Diabetes Mellitus, Type 3c, Hypothyroidism, IDDM Hematologic History: Reports: None. Denies: Anemia, Blood Transfusion(s), Iron Deficiency Immunologic History: Reports: None. Denies: AIDS, HIV, SLE Oncologic (Cancer) History: Reports: None. Denies: Basal Cell Carcinoma, Colon, Leukemia, Lymphoma, Malignant Melanoma, Non-Hodgkin's Lymphoma, Prostate, Squamous Cell Carcinoma Dermatologic History: Reports: None. Denies: Eczema, Psoriasis - Infectious Disease History Infectious Disease History: Reports: Chicken Pox, Other (See Below). Denies: C- Difficile, Measles, Meningitis, Mononucleosis, MRSA, Mumps, Pertussis (Whooping Cough), Rheumatic Fever, Scarlet Fever, Shingles, VRE Other Infectious Disease History: Legionnaires disease in 2008 - Past Surgical History Head Surgeries/Procedures: Reports: Other (See Below) HEENT Surgical History: Reports: None. Denies: Cataract Surgery, Eye Surgery, Laser Surgery, LASIK, Myringotomy w Tube(s), Naso-Sinus Surgery, Oral Surgery, Tonsillectomy Cardiovascular Surgical History: Reports: None. Denies: Varicose Respiratory Surgical History: Reports: Other (See Below). Denies: Thoracentesis Other Respiratory Surgeries/Procedures: Bronchoscopy in 2007 secondary to evaluation of hemoptysis from Legionnaires disease with cardiac arrest as above GI Surgical History: Reports: Cholecystectomy, Other (See Below). Denies: Appendectomy, Colonoscopy, EGD, Hernia, Abdominal, Hernia, Inguinal, Hernia Repair/Other Other GI Surgeries/Procedures: Laparoscopic cholecystectomy in about 2012 Male Surgical History: Reports: Circumcision, Other (See Below). Denies: Vasectomy Other Male Surgeries/Procedures: Circumcision as an Endocrine Surgical History: Reports: None Neurological Surgical History: Reports: None. Denies: C-Spine, Discectomy, Laminectomy, Lumbar Spine, Sacral Spine, Spinal Fusion, Thoracic Spine, Vertebroplasty Musculoskeletal Surgical History: Reports: Other (See Below). Denies: Arthroscopic Procedure, Carpal Tunnel, Ganglion Cyst, Joint Replacement, ORIF, Shoulder Surgery Other Musculoskeletal Surgeries/Procedures:: skull fracture surgery as above. Oncologic Surgical History: Reports: None Dermatological Surgical History: Reports: Plastic Surgical Reconstruction/Repair, Other (See Below) Other Dermatological Surgeries/Procedures: Skull surgery as above. - Past Imaging History Past Imaging History: Reports: CAT Scan (CT scan of the maxillofacial region on 10/21/17. CT of the abdomen and pelvis on 02/24/18.) Social & Family History - Family History Family Medical History: No Pertinent Family History - Caffeine Use Caffeine Use: Reports: Coffee (3 cups per week), Soda (1 L per day). Denies: Energy Drinks, Tea - Living Situation & Occupation Living situation: Reports: Single (No children however currently living with his significant other and her child), Other (Roommate and roommate's father) Occupation: Employed ([employer]) ED ROS GENERAL - Review of Systems Review Of Systems: See Below Musculoskeletal: Reports: No Symptoms Skin: Reports: Other (laceration left index finger) Neurological: Reports: No Symptoms ED EXAM, SKIN/RASH Exam: See Below Exam Limited By: No Limitations General Appearance: Alert, WD/WN, No Apparent Distress Eye Exam: Bilateral Eye: EOMI, PERRL Throat/Mouth: Normal Lips, Normal Voice, No Airway Compromise Head: Atraumatic, Normocephalic Neck: Supple Respiratory/Chest: No Respiratory Distress Extremities: Other (exam of left hand shows very small laceration distal index finger that is approximately 5mm across. Unable to pull edges of wound apart more than 1-2mm. No active bleeding. Finger is NVI. ) Neurological: Alert, Oriented, Normal Cognition, No Motor/Sensory Deficits Psychiatric: Normal Affect, Normal Mood Skin: Warm, Normal Color Course - Vital Signs Last Recorded V/S: Last Vital Signs Temp 36.8 C 06/14/20 09:40 Pulse 81 06/14/20 09:40 Resp 16 06/14/20 09:40 BP 112/73 06/14/20 09:40 Pulse Ox 95 06/14/20 09:40 - Orders/Labs/Meds Meds: Medications Discontinued Medications Generic Name Dose Route Start Last Admin Trade Name Freq PRN Reason Stop Dose Admin Lidocaine HCl 5 ml 06/14/20 10:03 Lidocaine 1% 5 Ml Sdv INJECT 06/14/20 10:04 ONETIME ONE Neomycin/Polymyxin/Bacitracin 1 each 06/14/20 10:12 Bacitracin/Neomycin/Polymyxin B Oint 0.9 Gm U/D Packet TOP 06/14/20 10:13 ONETIME ONE - Re-Assessments/Exams Free Text/Narrative Re-Assessment/Exam: 06/14/20 10:23 Laceration is quite small and no active bleeding. No need for suturing. Soaked in Betadine. Topical antibiotic and bandage applied. Wound care and precautions reviewed. No antibiotics indicated at this time. Rx for Amox that is good to fill for one week dispensed to patient to pickup driver if any signs of infection develop. Departure - Departure Time of Disposition: 10:11 Disposition: Home, Self-Care 01 Condition: Good Clinical Impression: Finger laceration Qualifiers: Encounter type: initial encounter Finger: index finger Damage to nail status: without damage Foreign body presence: without foreign body Laterality: left Qualified Code(s): S61.211A - Laceration without foreign body of left index finger without damage to nail, initial encounter - Discharge Information *PRESCRIPTION DRUG MONITORING PROGRAM REVIEWED*: Not Applicable *COPY OF PRESCRIPTION DRUG MONITORING REPORT IN PATIENT TYLER: Not Applicable Prescriptions: Amoxicillin 500 mg PO TID #21 tab Instructions: Puncture Wound, [id number] Referrals: Zoila Avalos NP [Primary Care Provider] - Forms: ED Department Discharge Additional Instructions: Keep dressing on today/tonight. Keep wound covered and apply antibiotic ointment 2-3 times a day for next few days while healing. strip mine supervisor antibiotics IF signs of infection develop, such as increased pain/swelling/redness in area of cut. Follow up as needed otherwise if you have any concerns. Sepsis Event Note (ED) - Evaluation Sepsis Screening Result: No Definite Risk - Focused Exam Vital Signs: Vital Signs Temp Pulse Resp BP Pulse Ox 06/14/20 09:40 36.8 C 81 16 112/73 95
== END 2020-06-14 10:45 | disposition home or self-care (01) ==
LOC: LL.ED 09:31
DX: S61.211A Laceration without foreign body of left index finger without damage to nail, initial encounter (principal); W26.8XXA Contact with other sharp object(s), not elsewhere classified, initial encounter
CPT/HCPCS: 99282; 99283

== ENCOUNTER 2021-02-03 21:28 | Emergency (ER) | payer BC ==
[2021-02-03] MEDS: GI Cocktail Oral Solution 30 ML PO ONE (22:41)
[2021-02-03 22:50] LABS: ANION GAP 8.5 meq/L (7-15); CHLORIDE,CL 109 mmol/L (98-107); SODIUM,NA 146 mmol/L (136-145)
--- NOTE | 2021-02-03 22:52 | EDM.PDOC ---
ED HPI GENERAL MEDICAL PROBLEM - General Chief Complaint: Abdominal Pain Stated Complaint: ABd Pain Time Seen by Provider: 02/03/21 22:12 Source of Information: Reports: Patient - History of Present Illness INITIAL COMMENTS - FREE TEXT/NARRATIVE: Taqueria is a 51 y/o male who comes to the ER with complaints of upper abdominal pain that he has had now for about 2 weeks. Reports the pain is worse after he eats. No fever. Was nauseated and reports vomiting the last 2 days. No diarrhea. He reports being started on Amoxicillin 2 days ago for an ear infection. He has had his gallbladder removed 2 years ago. - Related Data Allergies Allergy/AdvReac Type Severity Reaction Status Date / Time No Known Allergies Allergy Verified 06/14/20 09:32 Home Meds: Home Meds Albuterol [Ventolin HFA] 1 puff INH BID PRN 04/15/16 [History] Ipratropium/Albuterol Sulfate [Iprat-Albut 0.5-3(2.5) mg/3 ml] 3 ml IH QID PRN 03/11/18 [History] Varenicline Tartrate [Chantix] 1 cap PO BID 03/11/18 [History] Amoxicillin 500 mg PO TID #21 tab 06/14/20 [Rx] Past Medical History HEENT History: Reports: Allergic Rhinitis, Impaired Vision, Other (See Below) Other HEENT History: Patient wears Glasses. 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 Left supraorbital fracture secondary to head injury at age 10. Cardiovascular History: Reports: Arrhythmia, Syncope, Other (See Below) Other Cardiovascular History: Intraoperative cardiac arrest recently during bronchoscopy in about 2007 with no additional procedures required Respiratory History: Reports: Asthma, Bronchitis, Recurrent, COPD, Intubation, Previous, Pneumonia, Recurrent, Other (See Below) Other Respiratory History: Legionnaires pneumonia with cardiac arrest during bronchoscopy in 2007 as above Gastrointestinal History: Reports: Cholelithiasis, Other (See Below) Other Gastrointestinal History: Umbilical hernia by CT scan in 2019 Genitourinary History: Reports: None Musculoskeletal History: Reports: Arthritis, Fracture, Osteoarthritis, Other (See Below) Other Musculoskeletal History: Right foot fracture at about age 14. Skull fracture as above. No phalangeal fracture of digit #2 of the right hand on 06/07/17. Neurological History: Reports: Concussion, Head Trauma, Other (See Below) Other Neuro History: Head concussion with skull fracture at age 10 Psychiatric History: Reports: ADD, ADHD, Addiction Other Psychiatric History: The patient has been off Adderal since Mar 2017. Previous history of illicit drug use as below. Endocrine/Metabolic History: Reports: Obesity/BMI 30+ Hematologic History: Reports: None Immunologic History: Reports: None Oncologic (Cancer) History: Reports: None Dermatologic History: Reports: None - Infectious Disease History Infectious Disease History: Reports: Chicken Pox, Other (See Below) Other Infectious Disease History: Legionnaires disease in 2007 - Past Surgical History Head Surgeries/Procedures: Reports: Other (See Below) HEENT Surgical History: Reports: None Cardiovascular Surgical History: Reports: None Respiratory Surgical History: Reports: Other (See Below) Other Respiratory Surgeries/Procedures: Bronchoscopy in 2007 secondary to evaluation of hemoptysis from Legionnaires disease with cardiac arrest as above GI Surgical History: Reports: Cholecystectomy, Other (See Below) Other GI Surgeries/Procedures: Laparoscopic cholecystectomy in about 2012 Male Surgical History: Reports: Circumcision, Other (See Below) Other Male Surgeries/Procedures: Circumcision as an infant Endocrine Surgical History: Reports: None Neurological Surgical History: Reports: None Musculoskeletal Surgical History: Reports: Other (See Below) Other Musculoskeletal Surgeries/Procedures:: skull fracture surgery as above. Oncologic Surgical History: Reports: None Dermatological Surgical History: Reports: Plastic Surgical Reconstruction/Repair, Other (See Below) - Past Imaging History Past Imaging History: Reports: CAT Scan (CT scan of the maxillofacial region on 10/21/17. CT of the abdomen and pelvis on 02/24/18.) Social & Family History - Family History Family Medical History: No Pertinent Family History - Caffeine Use Caffeine Use: Reports: Coffee, Soda - Living Situation & Occupation Living situation: Reports: Single (No children however currently living with his significant other and her child), Other (Roommate and roommate's father) Occupation: Employed ([employer]) Review of Systems - Review of Systems Review Of Systems: See Below Constitutional: Reports: No Symptoms Eyes: Reports: No Symptoms Ears: Reports: No Symptoms Nose: Reports: No Symptoms Mouth/Throat: Reports: No Symptoms Respiratory: Reports: No Symptoms Cardiovascular: Reports: No Symptoms GI/Abdominal: Reports: Abdominal Pain, Nausea, Vomiting Genitourinary: Reports: No Symptoms Musculoskeletal: Reports: No Symptoms Skin: Reports: No Symptoms Neurological: Reports: No Symptoms Psychiatric: Reports: No Symptoms ED EXAM, GENERAL - Physical Exam Exam: See Below General Appearance: Alert, WD/WN, No Apparent Distress (Adult male) Ears: Hearing Grossly Normal Nose: Normal Inspection, Normal Mucosa Throat/Mouth: Normal Inspection, Normal Oropharynx, Normal Voice Head: Atraumatic, Normocephalic Respiratory/Chest: No Respiratory Distress, Lungs Clear Cardiovascular: Normal Peripheral Pulses, Regular Rate, Rhythm, No Murmur GI/Abdominal: Normal Bowel Sounds, Soft, Tender (RUQ/Epigastric/LUQ regions) (Male) Exam: Deferred Rectal (Males) Exam: Deferred Back Exam: Normal Inspection Extremities: Normal Inspection, Normal Capillary Refill Neurological: Alert, Oriented, CN II-XII Intact, Normal Cognition, No Motor/Sensory Deficits Course - Vital Signs Text/Narrative:: The patient was seen by the HR DIRECTOR. Labs ordered. No fever. He was given a GI cocktail. 2305 Labs reviewed. Note elevated ETOH level. All other labs negative. Patient falling asleep in the chair. HR DIRECTOR discussed labs with patient, but he denies alcohol use. Advised he go home to rest and use OTC Prilosec or Pepcid and if he is not better, then Fu with his PCP. No imaging studies indicated tonight. Written instructions were given and he left the ER in stable condition. - Orders/Labs/Meds Orders: Active Orders 24 hr Category Date Time Status UA RFX MARLENE AND CULT IF INDIC [URIN] Stat Lab 02/03/21 22:18 Ordered Labs: Laboratory Tests 02/03/21 02/03/21 Range/Units 22:25 22:25 WBC 7.6 (4.0-10.2) K/uL RBC 4.43 (4.33-5.41) M/uL Hgb 14.7 (13.1-16.8) g/dL Hct 44.2 (39.0-49.0) % MCV 99.8 H (84.0-98.0) fL MCH 33.2 (28.2-33.3) pg MCHC 33.3 (31.7-36.0) g/dL RDW 13.4 (11.2-14.1) % Plt Count 240 (150-350) K/uL Neut % (Auto) 63.9 (45.0-80.0) % Lymph % (Auto) 22.5 (10.0-50.0) % [place] % (Auto) 9.3 (2.0-14.0) % Eos % (Auto) 3.8 (0.0-5.0) % Baso % (Auto) 0.5 (0.0-2.0) % Neut # (Auto) 4.85 (1.40-7.00) K/uL Lymph # (Auto) 1.71 (0.50-3.50) K/uL [place] # (Auto) 0.71 (0.00-1.00) K/uL Eos # (Auto) 0.29 (0.00-0.50) K/uL Baso # (Auto) 0.04 (0.00-0.20) K/uL Sodium 146 H (136-145) mmol/L Potassium 4.3 (3.5-5.1) mmol/L Chloride 109 H (98-107) mmol/L Carbon Dioxide 32.8 H (21.0-32.0) mmol/L Anion Gap 8.5 (7-15) meq/L BUN 14 (7-18) mg/dL Creatinine 0.87 (0.51-1.17) mg/dL Est Cr Clr Drug Dosing TNP Estimated GFR (MDRD) > 60 mL/min Glucose 113 H (70-99) mg/dL Calcium 8.7 (8.5-10.1) mg/dL Magnesium 2.2 (1.8-2.4) mg/dL Total Bilirubin 0.2 (0.2-1.0) mg/dL AST 8 L (15-37) U/L ALT 22 (12-78) U/L Alkaline Phosphatase 55 (46-116) IU/L Total Protein 6.3 L (6.4-8.2) g/dL Albumin 3.3 L (3.4-5.0) g/dL Amylase 71 (25-115) U/L Lipase 113 (73-393) U/L Ethyl Alcohol < 3.000 H (0.000-0.080) g/dL Meds: Medications Discontinued Medications Generic Name Dose Route Start Last Admin Trade Name Freq PRN Reason Stop Dose Admin Al Hydroxide/Mg Hydroxide 30 ml 12/17/21 22:17 02/03/21 22:41 Gi Cocktail Oral Solution 30 Ml PO 02/03/21 22:18 30 ml ONETIME ONE Administration Departure - Departure Time of Disposition: 23:02 Disposition: Home, Self-Care 01 Condition: Good Clinical Impression: Gastritis Qualifiers: Gastritis type: alcoholic Chronicity: acute Gastritis bleeding: without bleeding Qualified Code(s): K29.20 - Alcoholic gastritis without bleeding Alcohol intoxication Qualifiers: Complication of substance-induced condition: uncomplicated Qualified Code(s): F10.920 - Alcohol use, unspecified with intoxication, uncomplicated - Discharge Information Instructions: Gastritis, Adult Forms: ED Department Discharge Additional Instructions: -Use Over the counter Prilosec or Pepcid. -If your symptoms are not better in the next few days, you need to follow up with your PCP for further referral -Avoid alcohol, caffeine, tobacco, and any other irritating foods - Problem List & Annotations (1) Gastritis SNOMED Code(s): 0756288 Code(s): K29.70 - GASTRITIS, UNSPECIFIED, WITHOUT BLEEDING Status: Acute Annotation/Comment:: Labs negative. GI Cocktail given. VSS. Qualifiers: Gastritis type: alcoholic Chronicity: acute Gastritis bleeding: without bleeding Qualified Code(s): K29.20 - Alcoholic gastritis without bleeding (2) Alcohol intoxication SNOMED Code(s): 03256792 Code(s): F10.929 - ALCOHOL USE, UNSPECIFIED WITH INTOXICATION, UNSPECIFIED Status: Acute Annotation/Comment:: ETOH >3.000. Clinically sober and able to walk and talk out fo ER. Qualifiers: Complication of substance-induced condition: uncomplicated Qualified Code(s): F10.920 - Alcohol use, unspecified with intoxication, uncomplicated - Problem List Review Problem List Initiated/Reviewed/Updated: Yes - My Orders Last 24 Hours: My Active Orders 02/03/21 22:18 UA RFX MARLENE AND CULT IF INDIC [URIN] Stat - Assessment/Plan Last 24 Hours: My Active Orders 02/03/21 22:18 UA RFX MARLENE AND CULT IF INDIC [URIN] Stat Plan: See above
[2021-02-04 00:14] VITALS: BP 113/64; PULSE 111
== END 2021-02-03 23:20 | disposition home or self-care (01) ==
LOC: LL.ED 21:28
DX: K29.20 Alcoholic gastritis without bleeding (principal); F10.129 Alcohol abuse with intoxication, unspecified; J44.9 Chronic obstructive pulmonary disease, unspecified; E66.9 Obesity, unspecified; Z68.30 Body mass index [BMI] 30.0-30.9, adult; Y90.5 Blood alcohol level of 100-119 mg/100 ml
CPT/HCPCS: 36415; 80053; 80307; 82150; 83690; 83735; 85025; 99284; A9270-GY

== ENCOUNTER 2021-05-16 13:15 | Emergency (ER) | payer BC ==
[2021-05-16] MEDS ORDERED: Dexamethasone 10 MG/ML SDV IVPUSH ONE (14:01)
[2021-05-16] MEDS ORDERED: Sodium Chloride 0.9% 10 ML Syringe FLUSH PRN (14:01)
[2021-05-16] MEDS ORDERED: Lactated Ringers 1,000 ML IV ONE (14:01)
[2021-05-16] MEDS ORDERED: Ketorolac 30 MG/ML SDV IVPUSH ONE (14:03)
[2021-05-16] MEDS ORDERED: Clindamycin Phosphate in D5W 900 MG in Premix Bag 1 BAG IV ONE ×2 (14:03)
[2021-05-16] MEDS ORDERED: Iopamidol 612 MG/ML 100 ML Bottle IVPUSH STA (14:04)
[2021-05-16 14:55] LABS: CHLORIDE,CL 104 mmol/L (98-107); SODIUM,NA 142 mmol/L (136-145)
[2021-05-16] MEDS ORDERED: Lactated Ringers 1,000 ML IV SCH (16:30)
[2021-05-16] MEDS ORDERED: HYDROmorphone 1 MG/ML Syringe IVPUSH PRN ×2 (16:51→16:58)
[2021-05-16] MEDS ORDERED: Ketorolac 30 MG/ML SDV IM PRN (16:51)
[2021-05-16] MEDS ORDERED: Ondansetron 4 MG/2 ML SDV IVPUSH PRN (16:51)
[2021-05-16] MEDS ORDERED: Acetaminophen 325 MG Tab PO PRN (16:51)
[2021-05-16] MEDS ORDERED: HYDROmorphone 0.5 MG/0.5 ML Syringe IV ONE (16:54)
[2021-05-16 17:49] VITALS: BP 138/94; PULSE 102
[2021-05-16] MEDS ORDERED: Lactobacillus Rhamnosus GG (Probiotic) Cap PO SCH (18:00)
[2021-05-16] MEDS ORDERED: Clindamycin in 0.9 % Sod Chlor 600 MG in Premix Bag 1 BAG IV SCH ×2 (20:00)
[2021-05-17] MEDS ORDERED: Dexamethasone 10 MG/ML SDV IVPUSH SCH (08:00)
== END 2021-05-16 17:35 | disposition left against medical advice (07) ==
LOC: LL.ED 13:15 → LL.MS 16:42 → UNDOADMIN 16:42 → LL.ED 17:35
DX: A41.9 Sepsis, unspecified organism (principal); J36 Peritonsillar abscess; J44.9 Chronic obstructive pulmonary disease, unspecified; M19.90 Unspecified osteoarthritis, unspecified site; E66.9 Obesity, unspecified; Z68.27 Body mass index [BMI] 27.0-27.9, adult; Z72.0 Tobacco use
CPT/HCPCS: 36415; 70491; 80053; 83605; 84145; 85025; 86140; 87040; 96365; 96375; 99283-25; 99284; J1100; J1885; J3490; J7120; Q9967

== ENCOUNTER 2021-07-07 17:16 | Emergency (ER) | payer BC ==
[2021-07-07 17:56] VITALS: BP 124/81; PULSE 102
== END 2021-07-07 18:03 | disposition left against medical advice (07) ==
LOC: LL.ED 17:16
DX: L76.22 Postprocedural hemorrhage of skin and subcutaneous tissue following other procedure (principal); J45.909 Unspecified asthma, uncomplicated; E66.9 Obesity, unspecified; Z68.30 Body mass index [BMI] 30.0-30.9, adult; Z90.49 Acquired absence of other specified parts of digestive tract; Z79.899 Other long term (current) drug therapy
CPT/HCPCS: 99284

== ENCOUNTER 2021-07-10 18:05 | Emergency (ER) | payer BC ==
[2021-07-10] MEDS ORDERED: diphenhydrAMINE 50 MG/ML SDV IM ONE (18:07)
[2021-07-10] MEDS ORDERED: methylPREDNISolone Sodium Succinate 125 MG/2 ML SDV IM ONE (18:07)
[2021-07-10] MEDS ORDERED: EPINEPHrine 1 MG/ML SDV IM ONE (18:09)
[2021-07-10] MEDS ORDERED: Famotidine 20 MG/2 ML SDV IVPUSH ONE (18:16)
[2021-07-10] MEDS ORDERED: Sodium Chloride 0.9% 1,000 ML IV ONE ×2 (18:17→19:29)
[2021-07-10] MEDS ORDERED: Albuterol 0.083% 2.5 MG/3 ML Neb Soln NEB ONE (18:18)
[2021-07-10] MEDS ORDERED: Sodium Chloride 0.9% 10 ML Syringe FLUSH PRN (18:23)
[2021-07-10 18:54] LABS: ANION GAP 7.6 meq/L (7-15); CHLORIDE,CL 103 mmol/L (98-107); SODIUM,NA 140 mmol/L (136-145)
[2021-07-10 21:07] VITALS: BP 99/65; PULSE 99
== END 2021-07-10 20:50 | disposition home or self-care (01) ==
LOC: LL.ED 18:05
DX: T78.1XXA Other adverse food reactions, not elsewhere classified, initial encounter (principal); E66.9 Obesity, unspecified; Z68.30 Body mass index [BMI] 30.0-30.9, adult; Z88.6 Allergy status to analgesic agent
CPT/HCPCS: 36415; 80053; 94640; 96361; 96372; 96374; 99283; 99283-25; J0171; J1200; J2930; J3490; J7030; J7613-GY

== ENCOUNTER 2021-09-13 21:00 | Emergency (ER) | payer BC ==
[2021-09-13] MEDS ORDERED: Sodium Chloride 0.9% 10 ML Syringe FLUSH PRN (21:29)
[2021-09-13] MEDS: Lactated Ringers 1,000 ML IV ONE (21:48)
[2021-09-13 22:07] LABS: ANION GAP 4.2 meq/L (7-15)
[2021-09-13 22:51] VITALS: BP 129/83; PULSE 92
== END 2021-09-13 22:55 | disposition home or self-care (01) ==
LOC: LL.ED 21:00
DX: J02.9 Acute pharyngitis, unspecified (principal); I95.9 Hypotension, unspecified; E86.1 Hypovolemia; J44.9 Chronic obstructive pulmonary disease, unspecified; F17.210 Nicotine dependence, cigarettes, uncomplicated; E66.9 Obesity, unspecified; Z88.6 Allergy status to analgesic agent; Z68.29 Body mass index [BMI] 29.0-29.9, adult; Z90.09 Acquired absence of other part of head and neck
CPT/HCPCS: 36415; 80053; 83605; 85025; 96360; 99283-25; J7120

== ENCOUNTER 2022-07-19 23:10 | Emergency (ER) | payer BC, OTHER ==
[2022-07-19 23:49] VITALS: BP 107/68; PULSE 130
[2022-07-19] MEDS ORDERED: Albuterol/Ipratropium 3.0-0.5 MG/3 ML Neb Soln NEB ONE (23:59)
[2022-07-20] MEDS ORDERED: methylPREDNISolone Sodium Succinate 125 MG/2 ML SDV IM ONE (00:33)
[2022-07-20] MEDS ORDERED: Take Home: Albuterol/Ipratropium 3.0-0.5 MG/3 ML Neb Soln, 5 Neb Pack NEB ONE (00:34)
== END 2022-07-20 00:50 | disposition home or self-care (01) ==
LOC: SUPCPDRO 23:10 → LL.ED 23:10
DX: J44.1 Chronic obstructive pulmonary disease with (acute) exacerbation (principal); E66.9 Obesity, unspecified; Z68.29 Body mass index [BMI] 29.0-29.9, adult; Z88.8 Allergy status to other drugs, medicaments and biological substances; Z72.0 Tobacco use
CPT/HCPCS: 94640; 96372; 99284; A9270-GY; J2930; J7620-GY

== ENCOUNTER 2022-09-28 17:54 | Emergency (ER) | payer OTHER, BC ==
[2022-09-28 19:27] VITALS: BP 107/78; PULSE 97
== END 2022-09-28 19:48 | disposition home or self-care (01) ==
LOC: LL.ED 17:54
DX: R10.11 Right upper quadrant pain (principal); J44.9 Chronic obstructive pulmonary disease, unspecified; F17.210 Nicotine dependence, cigarettes, uncomplicated; Z88.8 Allergy status to other drugs, medicaments and biological substances; Z79.51 Long term (current) use of inhaled steroids; X50.1XXA Overexertion from prolonged static or awkward postures, initial encounter; Y92.89 Other specified places as the place of occurrence of the external cause; Y99.0 Civilian activity done for income or pay
CPT/HCPCS: 71100-RT; 72100; 99284

== ENCOUNTER 2023-09-24 18:22 | Emergency (ER) | payer BC ==
[2023-09-24 18:37] VITALS: BP 112/70; PULSE 93
[2023-09-24] MEDS: predniSONE 20 MG Tab PO STA (19:15)
== END 2023-09-24 19:25 | disposition home or self-care (01) ==
LOC: LL.ED 18:22
DX: M70.21 Olecranon bursitis, right elbow (principal); J44.9 Chronic obstructive pulmonary disease, unspecified; E66.9 Obesity, unspecified; Z79.899 Other long term (current) drug therapy; Z88.6 Allergy status to analgesic agent
CPT/HCPCS: 73080-RT; 99283; J7512